=== PATIENT | male | born 1975 | race Caucasian/White ===

== ENCOUNTER 2016-12-10 18:26 | Emergency (ER) | payer BC ==
[~2016-12-10] VITALS: Ht 182.9 cm; Wt 140.0 kg
[2016-12-10 18:27] VITALS: BP 116/82; PULSE 85; RESP 20; TEMP 98.9; O2SAT 99
--- NOTE | 2016-12-10 23:23 | PD ---
HPI Chief Complaint: Pain: Acute or Chronic Time Seen by Provider: 23:18 Travel History International Travel<30 days: No Contact w/Intl Traveler<30days: No Traveled to known affect area: No History of Present Illness HPI Patient comes in complaining of possible DVT. 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 Patient states that since progressed slowly up his thigh continues to be painful and has become erythematous. Patient denies doing anything for this. Patient denies anything making it better or worse. Patient states he Googled it and has concerns over possible DVT but is hoping that it is just a superficial venous thrombosis. Patient denies any numbness or tingling. Denies shortness of breath, chest pain, fevers, smoking, trauma, or recent surgeries. PFSH Past Medical History Medical History: Denies Significant Hx Social History Alcohol Use: No Tobacco Use: No Substance Use: No Allergies-Medications (Allergen,Severity, Reaction): Coded Allergies: No Known Allergies (Unverified , 12/10/16) Reported Meds & Prescriptions Reported Meds & Active Scripts Active No Active Prescriptions or Reported Medications Review of Systems Except as stated in HPI: all other systems reviewed are Neg Physical Exam Narrative GENERAL: Well-developed, overly nourished, in no acute distress, and non-ill appearing. SKIN: Patient has what appears be a palpable superficial thrombophlebitis thigh distally. It is mildly tender. There is no fluctuation, induration, or crepitus. HEAD: Atraumatic. Normocephalic. EYES: Pupils equal and round. EOMI. No scleral icterus. No injection or drainage. ENT: No nasal bleeding or discharge. Mucous membranes pink and moist. NECK: Trachea midline. Supple. No nuclear rigidity. CARDIOVASCULAR: Dorsal pulses 2+, intact, and equal bilaterally. No pedal edema. Negative Homans sign bilaterally. RESPIRATORY: No accessory muscle use. No respiratory distress. MUSCULOSKELETAL: No obvious deformities. No clubbing. No cyanosis. No edema. Full range of motion. NEUROLOGICAL: Awake and alert. No obvious cranial nerve deficits. Motor grossly within normal limits. Normal speech. PSYCHIATRIC: Appropriate mood and affect; insight and judgment normal. Data Data Last Documented VS Vital Signs Date Time Temp Pulse Resp B/P Pulse Ox O2 Delivery O2 Flow Rate FiO2 12/10/16 18:27 98.9 85 20 116/82 99 Room Air Orders Us Leg Venous Doppler (12/10/16 23:17) Aspirin (Aspirin) (12/11/16 01:00) [facility] Medical Decision Making Medical Screen Exam Complete: Yes Emergency Medical Condition: Yes Interpretation(s) Ultrasound left lower extremity read by the radiologist shows: 1. No evidence of DVT. 2. There appear to be some superficial varicose veins some of which appear to be partially thrombosed located in the medial mid to distal thigh location. Differential Diagnosis DVT, superficial thrombophlebitis, cellulitis, abscess, other Narrative Course Patient in no obvious distress upon re-evaluation. All pertinent Radiology result(s) discussed with patient/family. Any questions/concerns in reference to patient diagnosis/condition discussed and clarified prior to patient's discharge. Reinforced sheer importance of close follow up with patient's primary physician or primary care clinic. Instructed patient to return to ED immediately, if symptoms return/worsen. Pt showed understanding of above instructions. Further instructions and recommendations were detailed in discharge paperwork. Pt ambulated without difficulty out of ED at discharge. Diagnosis Primary Impression: Acute superficial venous thrombosis of right lower extremity Patient Instructions: General Instructions Additional Instructions: Follow-up with your primary care physician in 3-5 days for reevaluation. Use [id number] aspirin daily until resolved. Follow instructions on the packaging. Apply warm compresses multiple times daily until resolved. Return to the emergency department if symptoms get worse. Scripts No Active Prescriptions or Reported Meds Disposition: 01 DISCHARGE HOME Condition: Stable Eyal Ham Dec 10, 2016 23:23
--- NOTE | 2016-12-11 00:38 | RADRPT ---
EXAM DATE/TIME: 12/10/2016 23:54 [facility] COMPARISON: No previous studies available for comparison. INDICATIONS : Right leg swelling and redness. MEDICAL HISTORY : Right leg swelling and redness. SURGICAL HISTORY : None. ENCOUNTER: Initial ACUITY: 1 day PAIN SCORE: 2/10 LOCATION: Right leg. TECHNIQUE: Venous ultrasound of the leg was performed from the inguinal ligament to the proximal calf. Real-jan e, color Doppler and spectral tracing, compression and augmentation techniques were used. FINDINGS: There is normal compressibility of the deep venous system from the inguinal region to the proximal ca lf. No echogenic clot is seen in the lumen of the common femoral, femoral, popliteal, and posterior tibial veins. There is a normal response of the venous system to proximal and distal augmentation an d respiration. There appear to be some superficial varicose veins in the medial mid to distal thigh. Some of these a ppear to be partially thrombosed with minimal blood flow. CONCLUSION: 1. No evidence of DVT. 2. There appear to be some superficial varicose veins some of which appear to be partially thrombosed located in the medial mid to distal thigh location.. Dawood Negron MD on December 11, 2016 at 0:32 Board Certified Radiologist. This report was verified electronically.
[2016-12-11] MEDS ORDERED: ASPIRIN 325 MG TAB PO ONE (01:00)
== END 2016-12-11 01:37 | disposition home or self-care (01) ==
LOC: NEPD 18:26
DX: I82.811 Embolism and thrombosis of superficial veins of right lower extremity (principal)
CPT/HCPCS: 93971